=== PATIENT | female | born 1995 | race Caucasian/White ===

== ENCOUNTER 2017-11-21 19:09 | Emergency (ER) | payer MEDICAID ==
[2017-11-21 19:17] VITALS: BP 118/68
--- NOTE | 2017-11-21 20:19 | ED Physician Documentation ---
PD HPI LOWER EXT INJURY - Stated complaint Stated Complaint: TOE INJURY - Chief complaint Chief Complaint: Ext Problem - History obtained from History obtained from: Patient, Family - History of Present Illness PD HPI LOW EXT INJURY LOCATION: Left, Toe (4th) Type of injury: Blunt / blow Where injury occurred: Home Timing - onset: Enter time (229), Last night Timing - details: Abrupt onset, Still present Improved by: Rest Worsened by: Moving, Palpating Associated symptoms: Swelling, Discolored Similar symptoms before: Has not had sx before Recently seen: Not recently seen - Additional information Additional information: 22-year-old female was her home last night walking around a corner when she slammed her foot into a Post. She has pain swelling and discoloration to the fourth toe on the right foot. She was able sleep last night and she is able walk on this without too much trouble. Review of Systems Constitutional: denies: Fever Respiratory: denies: Cough GI: denies: Vomiting : denies: Dysuria Musculoskeletal: reports: Joint pain, Joint swelling, Pain with weight bearing Neurologic: denies: Generalized weakness, Focal weakness, Numbness PD PAST MEDICAL HISTORY - Past Medical History Past Medical History: No - Past Surgical History Past Surgical History: No - Present Medications Home Medications: Ambulatory Orders Medication Instructions Recorded Confirmed No Known Home Medications [No 11/21/17 11/21/17 Known Home Medications] - Allergies Allergies/Adverse Reactions: Allergies Allergy/AdvReac Type Severity Reaction Status Date / Time No Known Drug Allergies Allergy Verified 11/21/17 19:16 - Social History Does the pt smoke?: No Smoking Status: Never smoker Does the pt drink ETOH?: Yes Does the pt have substance abuse?: No PD ED PE NORMAL - Vitals Vital signs reviewed: Yes (normal ) - General General: Alert and oriented X 3, No acute distress, Well developed/nourished - HEENT HEENT: Atraumatic, PERRL - Neck Neck: Supple, no meningeal sign - Respiratory Respiratory: No respiratory distress - Derm Derm: Normal color, Warm and dry, No rash - Extremities Extremities: No deformity, Other (There is swelling and ecchymosis to the right 4th to over the dorsum.) - Neuro Neuro: Alert and oriented X 3, No motor deficit, No sensory deficit, Normal speech Eye Opening: Spontaneous Motor: Obeys Commands Verbal: Oriented GCS Score: 15 Results - Vitals Vitals: Vital Signs - 24 hr 11/21/17 19:15 Temperature 37.0 C Heart Rate 85 Respiratory 16 Rate Blood Pressure 118/68 O2 Saturation 97 Oxygen O2 Source Room air - Rads (name of study) toes Radiology: Prelim report reviewed (Impression: Normal toe radiography.), EMP read indepedently, See rad report PD MEDICAL DECISION MAKING - ED course Complexity details: reviewed results, re-evaluated patient, considered differential, d/w patient, d/w family ED course: 22-year-old female with a stubbed toe has no evidence of fracture on x-ray. - Sepsis Event Vital Signs: Vital Signs - 24 hr 11/21/17 19:15 Temperature 37.0 C Heart Rate 85 Respiratory 16 Rate Blood Pressure 118/68 O2 Saturation 97 Oxygen O2 Source Room air Departure - Departure Disposition: 01 Home, Self Care Clinical Impression: Toe contusion Qualifiers: Encounter type: initial encounter Toe: lesser toe Damage to nail status: without damage Laterality: right Qualified Code(s): S90.121A - Contusion of right lesser toe(s) without damage to nail, initial encounter Condition: Stable Instructions: ED Contusion Lower Ext Follow-Up: [facility] [Provider Group] Discharge Date/Time: 11/21/17 20:35
--- NOTE | 2017-11-21 20:20 | XRAY Report ---
Procedure Date: 11/21/2017 Accession Number: [id number] / [id number] Procedure: XR - Toe(s) RT CPT Code: FULL RESULT: EXAM: RIGHT TOE RADIOGRAPHY EXAM DATE: 11/21/2017 07:47 PM. CLINICAL HISTORY: Stubbed fourth toe. COMPARISON: None. TECHNIQUE: 3 views. FINDINGS: Bones: Normal. No fracture or bone lesion. Joints: Normal. No subluxations. Soft Tissues: Normal. No soft tissue swelling. IMPRESSION: Normal toe radiography. RADIA
== END 2017-11-21 20:35 | disposition home or self-care (01) ==
LOC: ED 19:09
DX: S90.121A Contusion of right lesser toe(s) without damage to nail, initial encounter (principal); W22.09XA Striking against other stationary object, initial encounter; Y93.01 Activity, walking, marching and hiking; Y92.009 Unspecified place in unspecified non-institutional (private) residence as the place of occurrence of the external cause
CPT/HCPCS: 73660; 99282; 99283

== ENCOUNTER 2018-11-30 15:40 | Emergency (ER) | payer MEDICAID ==
[2018-11-30 15:47] VITALS: BP 121/80
--- NOTE | 2018-11-30 17:04 | ED Physician Documentation ---
History of Present Illness - Stated complaint Stated Complaint: MOUTH SORE - Chief complaint Chief Complaint: Heent - History obtained from History obtained from: Patient - History of Present Illness Timing: How many days ago (3) Pain level max: 2 Pain level now: 2 - Additonal information Additional information: 23-year-old female states that she has an ulceration to the the buccal surface of the right cheek. States that this happens occasionally. This one is worse than usual. No fevers. No swelling. Usually improves with salt water rinses. Nothing makes it better or worse Review of Systems Constitutional: denies: Fever, Chills Skin: denies: Rash Musculoskeletal: denies: Neck pain, Back pain Neurologic: denies: Headache PD PAST MEDICAL HISTORY - Past Medical History Past Medical History: No - Past Surgical History Past Surgical History: No - Present Medications Home Medications: Ambulatory Orders Medication Instructions Recorded Confirmed Chlorhexidine Gluconate [Peridex] 15 ml MM Q6H #1 bottle 11/30/18 - Allergies Allergies/Adverse Reactions: Allergies Allergy/AdvReac Type Severity Reaction Status Date / Time No Known Drug Allergies Allergy Verified 11/30/18 15:47 - Social History Does the pt smoke?: No Smoking Status: Never smoker Does the pt drink ETOH?: Yes Does the pt have substance abuse?: No - Immunizations Immunizations are current?: Yes PD ED PE NORMAL - Vitals Vital signs reviewed: Yes - General General: Alert and oriented X 3, No acute distress - HEENT HEENT: Moist mucous membranes, Other (abrasion/ulceration to the R buccal surface near the back molar.) - Derm Derm: Warm and dry - Neuro Neuro: Alert and oriented X 3 Results - Vitals Vitals: Vital Signs - 24 hr 11/30/18 15:45 Temperature 36.5 C Heart Rate 100 Respiratory 20 Rate Blood Pressure 121/80 O2 Saturation 100 Oxygen O2 Source Room air PD MEDICAL DECISION MAKING - ED course Complexity details: considered differential, d/w patient ED course: Patient with an erosion to the inside of her cheek. This is likely secondary from the tooth and potentially chewing on the cheek. No signs of infection. Not consistent with a stomatitis. Will place on Peridex and follow-up with her dentist. Patient counseled regarding signs and symptoms for which I believe and urgent re-evaluation would be necessary. Patient with good understanding of and agreement to plan and is comfortable going home at this time This document was made in part using voice recognition software. While efforts are made to proofread this document, sound alike and grammatical errors may occur. Departure - Departure Disposition: 01 Home, Self Care Clinical Impression: Cheek abrasion, non-infected Condition: Good Follow-Up: your,doctor in 1 week [Other] Prescriptions: Chlorhexidine Gluconate [Peridex] 15 ml MM Q6H #1 bottle Comments: You appear to have a erosion of your cheek because of the tooth that is next to the area. You should follow-up with the dentist for further evaluation of this. Use the Peridex as prescribed. Discharge Date/Time: 11/30/18 17:13
== END 2018-11-30 17:13 | disposition home or self-care (01) ==
LOC: ED 15:40
DX: S00.512A Abrasion of oral cavity, initial encounter (principal); X58.XXXA Exposure to other specified factors, initial encounter
CPT/HCPCS: 99282; 99283

== ENCOUNTER 2023-04-22 18:43 | Emergency (ER) | payer OTHER, MEDICAID ==
[2023-04-22 18:58] VITALS: BP 123/67; O2SAT 100
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
== END 2023-04-22 19:15 | disposition home or self-care (01) ==
LOC: ED 18:43
DX: S16.1XXA Strain of muscle, fascia and tendon at neck level, initial encounter (principal); V49.9XXA Car occupant (driver) (passenger) injured in unspecified traffic accident, initial encounter
CPT/HCPCS: 99281; 99283